=== PATIENT | female | born 2000 | race Two or more races ===

== ENCOUNTER 2023-09-15 08:13 | Outpatient (CLI) | payer OTHER | END 2023-09-15 08:16 | disposition home or self-care (01) | LOC: PRENATAL 08:13 | PROVIDERS: ATTEND Obstetrics & Gynecology Maternal & Fetal Medicine | DX: O35.9XX0 Maternal care for (suspected) fetal abnormality and damage, unspecified, not applicable or unspecified (principal); O35.3XX0 Maternal care for (suspected) damage to fetus from viral disease in mother, not applicable or unspecified; O44.00 Complete placenta previa NOS or without hemorrhage, unspecified trimester; O34.219 Maternal care for unspecified type scar from previous cesarean delivery; O14.90 Unspecified pre-eclampsia, unspecified trimester; Z3A.20 20 weeks gestation of pregnancy ==

== ENCOUNTER 2024-10-05 12:53 | Outpatient (CLI) | payer OTHER | END 2024-10-05 12:54 | disposition home or self-care (01) | LOC: PRENATAL 12:53 | PROVIDERS: ATTEND Obstetrics & Gynecology Maternal & Fetal Medicine | DX: O44.00 Complete placenta previa NOS or without hemorrhage, unspecified trimester (principal); O34.219 Maternal care for unspecified type scar from previous cesarean delivery; Z3A.22 22 weeks gestation of pregnancy ==

== ENCOUNTER 2024-12-18 15:59 | Outpatient (CLI) | payer OTHER | END 2024-12-18 16:00 | disposition home or self-care (01) | LOC: PRENATAL 15:59 | DX: O26.849 Uterine size-date discrepancy, unspecified trimester (principal); O36.8199 Decreased fetal movements, unspecified trimester, other fetus; O34.219 Maternal care for unspecified type scar from previous cesarean delivery; Z3A.31 31 weeks gestation of pregnancy ==